=== PATIENT | female | born 1970 | race Caucasian/White ===

== ENCOUNTER → 2019-01-21 | Outpatient (CLI) | payer OTHER ==
[2019-01-21 09:20] LABS: HEMATOCRIT 39.1 % (36.0-47.0); HEMOGLOBIN 12.7 g/dl (12.0-15.5); MEAN CORPUSCULAR HEMOGLOBIN 26.9 pg (27.0-33.0); MEAN CORPUSCULAR HGB CONC 32.5 g/dl (32.0-36.5); MEAN CORPUSCULAR VOLUME 82.8 fl (80.0-96.0); PLATELET COUNT, AUTOMATED 211 10^3/uL (150-450); RED BLOOD COUNT 4.72 10^6/uL (4.00-5.40); WHITE BLOOD COUNT 5.9 10^3/uL (4.0-10.0)
[2019-01-21 09:53] LABS: ERYTHROCYTE SEDIMENTATION RATE 28 mm/hr (0-20)
[2019-01-21 11:48] LABS: ALBUMIN 3.5 GM/DL (3.2-5.2); ALT/SGPT 34 U/L (12-78); BILIRUBIN,TOTAL 0.6 MG/DL (0.2-1.0); BLOOD UREA NITROGEN 10 MG/DL (7-18); CALCIUM LEVEL 8.9 MG/DL (8.5-10.1); CARBON DIOXIDE LEVEL 25 MEQ/L (21-32); CHLORIDE LEVEL 105 MEQ/L (98-107); CHOLESTEROL LEVEL 212 MG/DL (<200); CHOLESTEROL RISK RATIO 4.818 (<5); CREATININE FOR GFR 0.79 MG/DL (0.55-1.30); GLOMERULAR FILTRATION RATE > 60.0 (>58); GLUCOSE, FASTING 93 MG/DL (70-100); HDL CHOLESTEROL 44 MG/DL (>40); LDL CHOLESTEROL 118 MG/DL (<100); NON-HDL-C 168 MG/DL; RHEUMATOID FACTOR QUANT < 10.0 IU/ML (<15.0); SODIUM LEVEL 141 MEQ/L (136-145); TOTAL 25(OH) VITAMIN D 15.7 NG/ML (30.0-100.0); TOTAL PROTEIN 7.1 GM/DL (6.4-8.2); TRIGLYCERIDES LEVEL 249 MG/DL (<150); URIC ACID 4.7 MG/DL (2.6-6.0)
[2019-01-21 12:31] LABS: HEMOGLOBIN A1c 5.2 %
--- NOTE | 2019-01-22 03:04 | REP ---
Clinical: Back pain. Hypertension. Technique: AP, lateral, bilateral oblique and coned-down views of the lumbosacral spine. Findings: Alignment and lordosis maintained. No acute fracture / compression injury or subluxation. Moderate multilevel degenerative changes include endplate sclerosis, disc space narrowing, and marginal spurring predominantly involving L3-4 through L5-S1. No spondylolysis or spondylolisthesis. Impression: Moderate multilevel degenerative change. Electronically Signed by Geoff Gomes MD 01/22/2019 02:56 A
--- NOTE | 2019-01-22 03:48 | REP ---
Clinical: Pain. Arthritis. Technique: AP, lateral, bilateral oblique and sunrise views of the right and left knee. Findings: Left knee demonstrates early moderate tricompartmental osteoarthritic degenerative changes including subchondral sclerosis to the tibial plateau, spurring/early osteophyte formation along the femoral condyles and tibial margins as well as subchondral sclerosis with joint space narrowing and marginal spurring of the patella. Right knee demonstrates mild tricompartmental osteoarthritic degenerative changes including subchondral sclerosis mild cortical irregularity involving the femoral condyles as well as subchondral sclerosis with joint space narrowing at the patellofemoral joint and small lateral patellar spur. Impression: Degenerative changes (left greater than right) as described above. Electronically Signed by Geoff Gomes MD 01/22/2019 03:39 A
--- NOTE | 2019-01-22 03:49 | REP ---
Clinical: Hypertension and fatigue . Comparison: 07/07/2008 Technique: PA and lateral. Findings: The mediastinum and cardiac silhouette are normal. The lung lloyd are clear and without acute consolidation, effusion, or pneumothorax. The skeletal structures are intact and normal. Impression: 1. No acute cardiopulmonary process. Electronically Signed by Geoff Gomes MD 01/22/2019 03:41 A
--- NOTE | 2019-01-22 03:51 | REP ---
Clinical: Arthritis pain. Technique: AP, lateral, bilateral oblique views of the right and left hand (eight views). Findings: There is no evidence for acute fracture dislocation. The osseous structures, joint spaces, and surrounding soft tissues are relatively symmetric and age appropriate. No overt osteoarthritic or inflammatory arthritic changes are appreciated. Impression: Essentially symmetric age-appropriate examination. No overt arthritic changes are appreciated. Electronically Signed by Geoff Gomes MD 01/22/2019 03:43 A
--- NOTE | 2019-01-22 07:53 | ECGEPIP ---
Stationary ECG Study [facility] Test Date: 2019-01-21 Pat Name: SANDRO ANDERSON Department: Room: - Gender: F [employer]: PAT : 1970 Requested By: Doyle Novoa Order Number: [id number] Reading MD: Antonio Alfred Measurements Intervals [place] Rate: 60 P: -11 MD: 162 QRS: 33 QRSD: 93 T: 18 QT: 385 QTc: 385 Interpretive Statements SINUS RHYTHM Comparison tracing not on file Electronically Signed On 01-22-2019 7:53:48 EST by Antonio Alfred
[2019-01-22 14:15] LABS: ANTINUCLEAR ANTIBODIES DIRECT Negative (Negative)
== END ==
LOC: M LAB 08:38
PROVIDERS: ATTEND Family Medicine
DX: R53.83 Other fatigue (principal)